=== PATIENT | male | born 2000 | race Caucasian/White ===

== ENCOUNTER 2021-10-19 15:06 | Emergency (ER) | payer MEDICAID ==
[~2021-10-19] VITALS: Ht 160 cm; Wt 72.7 kg
[2021-10-19 15:22] VITALS: BP 116/63
[2021-10-19] MEDS ORDERED: KETOROLAC TROMETHAMINE 10 MG TABLET PO ONE (16:15)
[2021-10-19] MEDS ORDERED: DOXY-354 PO (16:37)
== END 2021-10-19 16:48 | disposition home or self-care (01) ==
LOC: EMS 15:06
DX: L03.116 Cellulitis of left lower limb (principal)
CPT/HCPCS: 99283